=== PATIENT | female | born 1975 | race Caucasian/White ===

== ENCOUNTER 2016-11-21 23:04 | Emergency (ER) | payer OTHER ==
[~2016-11-21] VITALS: Ht 149.9 cm; Wt 39.5 kg
[2016-11-21 23:17] VITALS: BP 110/72
== END 2016-11-22 00:58 | disposition home or self-care (01) ==
LOC: ER 23:30
DX: S01.21XA Laceration without foreign body of nose, initial encounter (principal); J45.909 Unspecified asthma, uncomplicated; K21.9 Gastro-esophageal reflux disease without esophagitis; K58.9 Irritable bowel syndrome, unspecified; N32.81 Overactive bladder; G56.00 Carpal tunnel syndrome, unspecified upper limb; Z88.1 Allergy status to other antibiotic agents; Z88.8 Allergy status to other drugs, medicaments and biological substances; W22.8XXA Striking against or struck by other objects, initial encounter; Y93.89 Activity, other specified; Y92.89 Other specified places as the place of occurrence of the external cause; Y99.9 Unspecified external cause status
CPT/HCPCS: 12011; 99283; A4606; A6402; Z7610